=== PATIENT | female | born 1975 | race Caucasian/White ===

== ENCOUNTER 2017-04-08 11:07 | Emergency (ER) | payer OTHER ==
[2017-04-08 11:25] VITALS: BP 124/70; BMI 30.9
--- NOTE | 2017-04-08 11:31 | DR.GENAD ---
HPI - PCP Primary Care Physician: MARINA - Complaint/Symptoms Chief Complaint Doctors Comments: Patient presents with complaint of chronic abdominal for a year but recently severe left sided pain. She denies vomiting , diarrhea or fever. Chief Complaint:: PATIENT IS C/O STOMACH AND SIDE PAIN. PATIENT STATED THAT THE STOMACH PAIN HAS BEEN GOING ON FOR A WHILE NOW BUT THE LEFT SIDE PAIN IS NEW. SHE STATED ALSO THAT SHE IS HAVING SOME NAUSEA BUT DENIES ANY VOMITING. - Source History Provided: Patient - Mode of Arrival Mode of Arrival: Ambulatory - Timing Onset of Chief Complaint: 04/07/17 PMH - PMH Past Medical History: Yes Past Medical History: Diabetes, Dyslipidemia, Hypothyroidism Past Medical History Comment: INSULIN PUMP Past Surgical History: Yes Surgical History: Hysterectomy - Family History History of Family Medical Conditions: No - Social History Does patient currently use any type of tobacco product: No Have you used tobacco products in the last 12 months: No Type of Tobacco Use: None Does any household member use tobacco: No Alcohol Use: None Do you use any recreational Drugs:: No Lives With: Family Lives Where: Home - infectious screening In the last 2 months have you had wt loss of >10#?: NO Have you had fever, night sweats or hemotysis?: No Have you traveled outside the country in the last 6 months?: No Isolation: Standard ROS - Review of Systems Eyes: No Symptoms Reported ENTM: No Symptoms Reported Respiratoy: No Symptoms Reported Cardiovascular: No Symptoms Reported Gastrointestinal/Abdominal: Abdominal Pain, Nausea. negative: Constipation, Diarrhea, Vomiting Genitourinary: No Symptoms Reported Neurological: No Symptoms Reported Musculoskeletal: No Symptoms Reported Integumentary: No Symptoms Reported Hematologic/Lymphatic: No Symptoms Reported Endocrine: No Symptoms Reported Psychiatric: No Symptoms Reported All Other Systems: Reviewed and Negative PE - Vital Signs Vitals: Temperature 97.5 F Pulse Rate 86 Respiratory Rate 20 Blood Pressure 124/70 O2 Sat by Pulse Oximetry 96 - General Limitations: No Limitations General Appearance: Alert, Anxious - Head Head Exam: Normal Inspection, Atraumatic - Eyes Eye exam: Normal Appearance, PERRL, EOMI - ENT ENT Exam: Normal Exam External Ear Exam: Normal External Inspection TM/Canal Exam: Bilateral Normal Nose Exam: Normal Nose Exam Mouth Exam: Normal Inspection Throat Exam: Normal Inspection - Neck Neck Exam: Normal Inspection - Chest Chest Inspection: Normal Inspection - Respiratory Respiratory Exam: Normal Lung Sounds Bilat Respiratory Exam: Bilateral Clear to Auscultation - Cardiovascular Cardiovascular Exam: Regular Rate, Normal Rhythm - Abdominal Exam Abdominal Exam: Normal Inspection, Normal Bowel Sounds Abdominal Tenderness: RUQ, LLQ, Suprapubic - Extremities Extremities Exam: Normal Inspection, Full ROM - Back Back Exam: Normal Inspection, Full ROM - Neurologic Neurological Exam: Alert, Oriented X3, CN II-XII Intact - Psychiatric Psychiatric Exam: Normal Affect, Normal Mood - Skin Skin Exam: Warm, Dry, Intact ROR - Labs Reviewed Laboratory Results Reviewed?: Yes (H pylori positive, occult blood negative; UA negative) Result Diagrams: 04/08/17 11:45 04/08/17 11:45 Laboratory: WBC 5.3 X10^3/uL (3.6-10.0) 04/08/17 11:45 RBC 4.66 X10^6/uL (3.5-5.4) 04/08/17 11:45 Hgb 14.6 g/dL (12.0-16.0) 04/08/17 11:45 Hct 42.3 % (36.0-47.0) 04/08/17 11:45 MCV 90.8 fL (80.0-100.0) 04/08/17 11:45 MCH 31.3 pg (27.0-34.0) 04/08/17 11:45 MCHC 34.5 g/dL (33.0-35.0) 04/08/17 11:45 RDW 12.3 % (11.6-16.5) 04/08/17 11:45 Plt Count 260 X10^3/uL (150.0-450.0) 04/08/17 11:45 MPV 8.2 fL (7.4-11.0) 04/08/17 11:45 Neut % 67.7 % (42.0-75.0) 04/08/17 11:45 Lymph % 28.1 % (21.0-51.0) 04/08/17 11:45 [place] % 3.7 % (0.0-13.0) 04/08/17 11:45 Eos % 0.1 % (0.9-2.9) L 04/08/17 11:45 Baso % 0.4 % (0.2-1.0) 04/08/17 11:45 Neut # 3.6 x10^3/uL (2.2-4.8) 04/08/17 11:45 Lymph # 1.5 X10^3/uL (1.3-2.9) 04/08/17 11:45 [place] # 0.2 x10^3/uL (0.3-0.8) L 04/08/17 11:45 Eos # 0.0 x10^3/uL (0.0-0.2) 04/08/17 11:45 Baso # 0.0 X10^3/uL (0.0-0.1) 04/08/17 11:45 Absolute Nucleated RBC 0.0 /100WBC 04/08/17 11:45 Sodium 139 mmol/L (136-145) 04/08/17 11:45 Corrected Sodium 143 mmol/L (136-145) 04/08/17 11:45 Potassium 4.0 mmol/L (3.5-5.1) 04/08/17 11:45 Chloride 103 mmol/L (98-107) 04/08/17 11:45 Carbon Dioxide 28.6 mmol/L (21-32) 04/08/17 11:45 BUN 16 mg/dL (7-18) 04/08/17 11:45 Creatinine 0.76 mg/dL (0.55-1.02) 04/08/17 11:45 Est GFR (MDRD) Af Amer > 60 (>60) 04/08/17 11:45 Est GFR (MDRD) Non-Af > 60 (>60) 04/08/17 11:45 Glucose 252 mg/dL (65-99) H 04/08/17 11:45 Hemoglobin A1c 6.8 % (4.5-6.2) H 04/08/17 11:45 Calcium 9.2 mg/dL (8.5-10.1) 04/08/17 11:45 Corrected Calcium TNP 04/08/17 11:45 Total Bilirubin 0.50 mg/dL (0.2-1.0) 04/08/17 11:45 AST 17 Units/L (15-37) 04/08/17 11:45 ALT 31 Units/L (12-78) 04/08/17 11:45 Alkaline Phosphatase 68 Units/L (46-116) 04/08/17 11:45 C-Reactive Protein 0.60 mg/L (0-3.0) 04/08/17 11:45 Total Protein 7.5 g/dL (6.4-8.2) 04/08/17 11:45 Albumin 4.3 g/dL (3.4-5.0) 04/08/17 11:45 Globulin 3.2 g/dL (2.5-4.5) 04/08/17 11:45 Albumin/Globulin Ratio 1.3 Ratio (1.1-2.1) 04/08/17 11:45 Amylase 63 Units/L (25-115) 04/08/17 11:45 Lipase 131 Units/L (73-393) 04/08/17 11:45 Specimen Type Clean catch urine 04/08/17 11:26 Urine Color Yellow (YELLOW) 04/08/17 11:26 Urine Appearance Clear (CLEAR) 04/08/17 11:26 Urine pH 5.0 (5.0 - 8.0) 04/08/17 11:26 Ur Specific [place] 1.020 (1.000-1.030) 04/08/17 11:26 Urine Protein 1+ (NEGATIVE) 04/08/17 11:26 Urine Glucose (UA) 4+ (NEGATIVE) 04/08/17 11:26 Urine Ketones 2+ (NEGATIVE) 04/08/17 11:26 Urine Occult Blood 1+ (NEGATIVE) 04/08/17 11:26 Urine Nitrite Negative (NEGATIVE) 04/08/17 11:26 Urine Bilirubin Negative (NEGATIVE) 04/08/17 11:26 Urine Urobilinogen Normal (NORMAL) 04/08/17 11:26 Ur Leukocyte Esterase Negative (NEGATIVE) 04/08/17 11:26 Urine RBC 0 - 3 /HPF (NEGATIVE) 04/08/17 11:26 Urine WBC Rare /HPF (NEGATIVE) 04/08/17 11:26 Ur Squamous Epith Cells Rare /HPF (NEGATIVE) 04/08/17 11:26 Amorphous Sediment 1+ /HPF (NEGATIVE) 04/08/17 11:26 Urine Bacteria Trace /HPF (NEGATIVE) 04/08/17 11:26 Ur Culture Indicated? No/not indicated 04/08/17 11:26 Stool Description Joanne 60g formed brown 04/08/17 12:12 Stl Occult Blood (IFOB) Negative (NEGATIVE) 04/08/17 12:12 H. pylori IgG Antibody Positive (NEGATIVE) A 04/08/17 11:45 - Diagnosis Discharge Problem: Helicobacter pylori gastritis - Discharge Plan Condition: Stable - Follow ups/Referrals Follow ups/Referrals: APRIL GRAY [Primary Care Provider] - 3 days - Instructions
[2017-04-08 11:46] LABS: BILIRUBIN,URINE NEGATIVE (NEGATIVE); BLOOD/HEMOGLOBIN,URINE 1+ (NEGATIVE); GLUCOSE, URINE 4+ (NEGATIVE); KETONES,URINE 2+ (NEGATIVE); LEUKOCYTE ESTERASE ,URINE NEGATIVE (NEGATIVE); NITRITES,URINE NEGATIVE (NEGATIVE); PROTEIN,URINE 1+ (NEGATIVE); UROBILINOGEN,URINE NORMAL (NORMAL)
[2017-04-08 11:55] LABS: BASOPHILS % (AUTO) 0.4 % (0.2-1.0); EOSINOPHILS % (AUTO) 0.1 % (0.9-2.9); HEMATOCRIT 42.3 % (36.0-47.0); HEMOGLOBIN 14.6 g/dL (12.0-16.0); LYMPHOCYTES # (AUTO) 1.5 X10^3/uL (1.3-2.9); LYMPHOCYTES % (AUTO) 28.1 % (21.0-51.0); MEAN CORPUSCULAR HEMOGLOBIN 31.3 pg (27.0-34.0); MEAN CORPUSCULAR HGB CONC 34.5 g/dL (33.0-35.0); MEAN CORPUSCULAR VOLUME 90.8 fL (80.0-100.0); MEAN PLATELET VOLUME 8.2 fL (7.4-11.0); MONOCYTES # (AUTO) 0.2 x10^3/uL (0.3-0.8); MONOCYTES % (AUTO) 3.7 % (0.0-13.0); NEUTROPHILS # (AUTO) 3.6 x10^3/uL (2.2-4.8); NEUTROPHILS % (AUTO) 67.7 % (42.0-75.0); PLATELET COUNT 260 X10^3/uL (150.0-450.0); RED BLOOD COUNT 4.66 X10^6/uL (3.5-5.4); RED CELL DISTRIBUTION WIDTH 12.3 % (11.6-16.5); WHITE BLOOD COUNT 5.3 X10^3/uL (3.6-10.0)
[2017-04-08 12:04] LABS: ALANINE AMINOTRANSFERASE 31 Units/L (12-78); ALBUMIN 4.3 g/dL (3.4-5.0); ALKALINE PHOSPHATASE 68 Units/L (46-116); AMYLASE 63 Units/L (25-115); ASPARTATE AMINO TRANSFERASE 17 Units/L (15-37); BLOOD UREA NITROGEN 16 mg/dL (7-18); CALCIUM 9.2 mg/dL (8.5-10.1); CARBON DIOXIDE 28.6 mmol/L (21-32); CHLORIDE 103 mmol/L (98-107); COR NA(FOR HYPERGLY) 143 mmol/L (136-145); CREATININE 0.76 mg/dL (0.55-1.02); LIPASE 131 Units/L (73-393); SODIUM 139 mmol/L (136-145); TOTAL PROTEIN 7.5 g/dL (6.4-8.2); eGFR BLACK RACES > 60 (>60); eGFR NON BLACK RACES > 60 (>60)
[2017-04-08 12:24] LABS: APPEARANCE,URINE CLEAR (CLEAR); COLOR,URINE YELLOW (YELLOW)
[2017-04-08 12:25] LABS: BACTERIA,URINE TRACE /HPF (NEGATIVE); RBC,URINE 0 - 3 /HPF (NEGATIVE); SQUAMOUS EPITHELIAL CELL,UR RARE /HPF (NEGATIVE)
[2017-04-08 12:26] LABS: AMORPHOUS SEDIMENT,UR 1+ /HPF (NEGATIVE)
== END 2017-04-08 12:41 | disposition home or self-care (01) ==
LOC: ER 11:20
DX: B96.81 Helicobacter pylori [H. pylori] as the cause of diseases classified elsewhere (principal)
CPT/HCPCS: 36415; 80053; 81001; 82150; 82270; 83036; 83690; 85025; 86140; 86677; 99282